=== PATIENT | female | born 1950 | race Caucasian/White ===

== ENCOUNTER → 2018-11-08 | Outpatient (CLI) | payer MEDICARE ==
--- NOTE | 2018-11-09 13:03 | XCELERA REPORT ---
[address] [address] Lower Extremity Arterial Evaluation Name: NIKKI FIGUEROA V Age: 68 yrs Gender: Female : 1950 Patient Status: Outpatient Patient Location: Study Date: 11/08/2018 02:20 PM Procedure: A color flow and duplex scan of the lower extremity arteries was performed bilaterally with velocity and waveform anaylsis. Reason For Study: ULCER Ordering Physician: ROSA MARIA YOUNG Performed By: Tate Teran Measurements and Calculations Right Left COTTON CLEANER PSV 262.4 200.9 cm/sec Prox PFA PSV -96.0 100.4 cm/sec Prox Pop A PSV 92.1 68.4 cm/sec Dist NILTON PSV 76.6 84.0 cm/sec Mid LEGEND MAKER PSV 102.0 cm/sec Dist LEGEND MAKER PSV 108.1 cm/sec Frank Pedis PSV -269.4 -251.4cm/sec Right Side Arterial Evaluation Increased velocities, suggesting 50% or greater stenosis in the Common Femoral and Dorsalis Pedis arteries. Otherwise quite normal velocity and triphasic waveforms noted to the infrageniculate vessels . Ankle Brachial index not obtained due to bandaging. Left Side Arterial Evaluation Increased velocities, triphasic waveform in Common Femoral and Dorsalis Pedis arteries, suggesting localized stenosis. Otherwise normal velocity and triphasic waveforms noted to the infrageniculate vessels . Ankle Brachial index not obtained . Interpretation Summary No hemodynamically significant lesions in the bilateral lower extremities, on duplex imaging, at rest. The presence of localized areas of possible stenosis as indicated in Common Femoral and Dorsalis Pedis, bilaterally. : ROSA MARIA YOUNG > Justus Downing
--- NOTE | 2018-11-09 15:28 | XCELERA REPORT ---
[address] [address] Lower Extremity Venous Evaluation Procedure: A bilateral duplex scan of the lower extremity veins was performed. The evaluation included responses to compression and other maneuvers with patient in the supine and standing positions to assess venous insufficiency. Right Sided Venous Evaluation Deep venous system evaluatiion shows patent veins with no obstruction or significant reflux identified. Sapheno Femoral junction: no reflux. Femoral vein reflux: no reflux. Greater Saphenous vein, Proximal thigh: reflux: no reflux. Greater Saphenous vein, Distal thigh: reflux: no reflux. Greater Saphenous vein, Proximal below knee: reflux: no reflux. No significant Perforators identified. Left Sided Venous Evaluation Deep venous system evaluatiion shows patent veins with no obstruction or significant reflux identified. Sapheno Femoral junction: no reflux. Femoral vein reflux: no reflux. Greater Saphenous vein, Proximal thigh: reflux: no reflux. Greater Saphenous vein, Distal thigh: reflux: no reflux. Greater Saphenous vein, Proximal below knee: reflux: no reflux. No significant Perforators identified. Interpretation Summary No duplex evidence of DVT or obstruction in the bilateral lower extremities. No significant deep or superficial reflux noted. Name: NIKKI FIGUEROA V Age: 68 yrs Gender: Female : 1950 Patient Status: Outpatient Patient Location: Study Date: 11/08/2018 02:45 PM Reason For Study: ULCER Ordering Physician: ROSA MARIA YOUNG Performed By: Tate Teran : ROSA MARIA YOUNG > Justus Downing
== END ==
LOC: SP 13:39
PROVIDERS: ATTEND Nurse Practitioner
DX: L97.212 Non-pressure chronic ulcer of right calf with fat layer exposed (principal)
CPT/HCPCS: 93925; 93970

== ENCOUNTER → 2018-11-13 | Outpatient (CLI) | payer MEDICARE ==
--- NOTE | 2018-11-13 13:24 | RADIOLOGY REPORT (SQ) ---
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 NUMBER OF VIEWS: Two views. TECHNIQUE: Two radiographic images acquired of the right tibia and fibula to include the knee and an kle in at least one projection. LIMITATIONS: None. FINDINGS: MINERALIZATION: Normal. BONES: No acute fracture or dislocation. No worrisome bone lesions. SOFT TISSUES: No obvious swelling or foreign body. OTHER: No other significant finding. IMPRESSION: NEGATIVE STUDY OF THE RIGHT TIBIA AND FIBULA. NO RADIOGRAPHIC EVIDENCE OF ACUTE INJURY. TECHNICAL DOCUMENTATION: JOB ID: [id number] All Rights Reserved Reading location - IP/workstation name: [email or web address]
[2018-11-13 13:44] LABS: ABSOLUTE BASOPHILS # (AUTO) 0.1 10^3/uL (0.0-0.2); ABSOLUTE EOSINOPHILS # (AUTO) 0.1 10^3/uL (0.0-0.6); ABSOLUTE LYMPHOCYTES (AUTO) 2.1 10^3/uL (0.5-4.7); ABSOLUTE MONOCYTES (AUTO) 0.8 10^3/uL (0.1-1.4); ABSOLUTE NEUT (AUTO) 6.1 10^3/uL (1.7-8.2); BASOPHILS % (AUTO) 0.6 % (0-2); EOSINOPHILS % (AUTO) 0.7 % (0-6); HEMATOCRIT 43.5 % (36.0-47.0); HEMOGLOBIN 15.3 g/dL (12.0-15.5); LYMPHOCYTES % (AUTO) 23.2 % (13-45); MEAN CORPUSCULAR HEMOGLOBIN 36.5 pg (27.0-33.4); MEAN CORPUSCULAR HGB CONC 35.2 g/dL (32.0-36.0); MEAN CORPUSCULAR VOLUME 104 fl (80-97); MONOCYTES % (AUTO) 9.2 % (3-13); PLATELET COUNT 202 10^3/uL (150-450); RED BLOOD COUNT 4.19 10^6/uL (3.72-5.28); RED CELL DISTRIBUTION WIDTH 14.1 % (11.5-14.0); SEGMENTED NEUTROPHILS % (AUTO) 66.3 % (42-78); TOTAL CELLS COUNTED % (AUTO) 100 %; WHITE BLOOD COUNT 9.2 10^3/uL (4.0-10.5)
[2018-11-13 14:15] LABS: ALANINE AMINOTRANSFERASE 21 U/L (9-52); ALBUMIN 4.2 g/dL (3.5-5.0); ALKALINE PHOSPHATASE 56 U/L (38-126); ANION GAP 6 (5-19); ASPARTATE AMINO TRANSFERASE 25 U/L (14-36); BILIRUBIN,DIRECT 0.2 mg/dL (0.0-0.4); BILIRUBIN,TOTAL 0.7 mg/dL (0.2-1.3); BLOOD UREA NITROGEN 18 mg/dL (7-20); CALCIUM 9.7 mg/dL (8.4-10.2); CARBON DIOXIDE 33 mmol/L (22-30); CHLORIDE 97 mmol/L (98-107); GLUCOSE 121 mg/dL (75-110); SODIUM 135.8 mmol/L (137-145); TOTAL PROTEIN 6.8 g/dL (6.3-8.2)
[2018-11-13 14:16] LABS: C-REACTIVE PROTEIN < 5.0 mg/L (<10.0)
[2018-11-13 14:39] LABS: ERYTHROCYTE SEDIMENTATION RATE 7 mm/hr (0-30)
== END ==
LOC: WC 12:30
PROVIDERS: ATTEND Nurse Practitioner
DX: L97.212 Non-pressure chronic ulcer of right calf with fat layer exposed (principal)
CPT/HCPCS: 36415; 80053; 85025; 85652; 86140